=== PATIENT | female | born 1945 | race African-American/Black ===

== ENCOUNTER 2020-06-28 12:57 | Outpatient (REF) | payer MEDICARE, SELFPAY ==
[2020-06-28 14:54] LABS: MANUAL DIFF FLAG NO
[2020-06-28 14:58] LABS: Basophils Absolute Auto 0.1 X10*3/uL (0.0-0.2); Basophils Percent Auto 1.2 % (0-2); Eosinophils Absolute Auto 0.1 X10*3/uL (0.0-0.4); Eosinophils Percent Auto 2.7 % (0-4); Hematocrit 37.2 % (37-47); Hemoglobin 12.3 g/dl (12.0-16.0); Imm Gran Abs Auto 0.01 X10*3/uL (0.00-0.03); Imm Gran Pct Auto 0.2 % (0.0-0.4); Lymphocytes Absolute Auto 1.1 X10*3/uL (1.2-4.9); Lymphocytes Percent Auto 22.7 % (20-40); Mean Corpuscular HGB Conc 33.1 g/dl (31.0-35.0); Mean Corpuscular Hemoglobin 30.4 pg (27.0-33.0); Mean Corpuscular Volume 91.9 fL (80-98); Mean Platelet Volume 11.2 fL (9.4-12.3); Monocytes Absolute Auto 0.5 X10*3/uL (0.1-1.2); Monocytes Percent Auto 10.2 % (2-11); Neutrophils Absolute Auto 3.1 X10*3/uL (2.0-8.3); Platelet Count 204 X10*3/uL (160-400); Red Blood Count 4.05 X10*6/uL (4.20-5.50); Red Cell Distribution Width 14.8 % (11.0-16.0); White Blood Count 4.9 X10*3/uL (4.8-10.8)
[2020-06-28 15:27] LABS: Albumin Level 3.9 g/dL (3.5-5.0); Anion Gap 11 (12-20); Blood Urea Nitrogen 9 mg/dL (9-16); Calcium 8.9 mg/dL (8.4-10.2); Carbon Dioxide 28 mmol/L (22-29); Chloride 105 mmol/L (96-108); Estimated Glomerular Filt Rate 45; Magnesium 1.8 mg/dL (1.6-2.6); Phosphorus 2.7 mg/dL (2.7-4.5); Potassium 4.3 mmol/l (3.3-5.1); Sodium 140 mmol/L (135-145)
[2020-06-30 15:07] LABS: Calcium (PTHI) 9.2 mg/dL (8.6-10.4); PTHI 100 pg/mL (14-64)
== END 2020-06-28 12:58 | disposition home or self-care (01) ==
LOC: HO.LAB 12:57
PROVIDERS: PCP Internal Medicine; Visit Provider Internal Medicine Hypertension Specialist
DX: I13.0 Hypertensive heart and chronic kidney disease with heart failure and stage 1 through stage 4 chronic kidney disease, or unspecified chronic kidney disease (principal); N18.30 Chronic kidney disease, stage 3 unspecified; I50.9 Heart failure, unspecified
CPT/HCPCS: 36415; 80051; 82040; 82310; 82565; 83735; 83970; 84100; 84520; 85025

== ENCOUNTER 2020-07-07 10:15 | Outpatient (REF) | payer MEDICARE, SELFPAY ==
[2020-07-07 11:51] LABS: Vitamin D 25-OH Total 23.9 ng/mL (>30)
== END 2020-07-07 10:16 | disposition home or self-care (01) ==
LOC: HO.LAB 10:15
PROVIDERS: PCP Internal Medicine; Visit Provider Internal Medicine
DX: E55.9 Vitamin D deficiency, unspecified (principal)
CPT/HCPCS: 82306

== ENCOUNTER 2020-07-24 09:43 | Outpatient (REF) | payer MEDICARE, SELFPAY ==
[2020-07-24 12:59] LABS: Alanine Aminotransferase 8 U/L (0-31); Alkaline Phosphatase 54 U/L (39-117); Anion Gap 12 (12-20); Aspartate Amino Transferase 19 U/L (5-31); Bilirubin Total 1.2 mg/dL (0.0-1.0); Blood Urea Nitrogen 12 mg/dL (9-16); Carbon Dioxide 31 mmol/L (22-29); Chloride 102 mmol/L (96-108); Cholesterol 179 mg/dL; Estimated Glomerular Filt Rate 40; Glucose Fasting 98 mg/dL (60-99); HDL Cholesterol 52 mg/dL; LDL Cholesterol Calculated 102 mg/dl; Potassium 4.6 mmol/l (3.3-5.1); Sodium 140 mmol/L (135-145); Total Protein 7.2 g/dL (6.5-8.0); Triglycerides 126 mg/dL
[2020-07-28 14:21] LABS: Vitamin D 25-OH, D2 <4 ng/mL; Vitamin D 25-OH, D3 24 ng/mL; Vitamin D 25-OH, Total 24 ng/mL (30-100)
== END 2020-07-24 09:44 | disposition home or self-care (01) ==
LOC: HO.LAB 09:43
PROVIDERS: PCP Internal Medicine; Visit Provider Internal Medicine
DX: E55.9 Vitamin D deficiency, unspecified (principal); E11.9 Type 2 diabetes mellitus without complications
CPT/HCPCS: 80053; 80061; 82306

== ENCOUNTER 2020-08-20 12:58 | Outpatient (REF) | payer MEDICARE, SELFPAY ==
--- NOTE | 2020-08-20 13:07 | XR_ITS ---
EXAMINATION: XR CHEST CLINICAL INFORMATION: Cough. COMPARISON: None TECHNIQUE: 2 views of the chest were obtained. FINDINGS: The lungs are well-expanded patchy atelectasis or scarring right lung base. Rest of lungs are clear. Heart size and pulmonary vascularity is normal. No gross bony abnormality. XR/XR chest 2V IMPRESSION: Patchy atelectasis or infiltrate in right lung base.
== END 2020-08-20 12:59 | disposition home or self-care (01) ==
LOC: HO.HMGCX 12:58
PROVIDERS: PCP Internal Medicine; Visit Provider Nurse Practitioner Family
DX: R05 Cough (principal)
CPT/HCPCS: 71046

== ENCOUNTER 2020-08-21 12:09 | Outpatient (REF) | payer MEDICARE, SELFPAY | END 2020-08-21 12:10 | disposition home or self-care (01) | LOC: HO.HMGCLDS 12:09 | PROVIDERS: Visit Provider Internal Medicine | DX: Z20.828 Contact with and (suspected) exposure to other viral communicable diseases (principal) | CPT/HCPCS: C9803; U0003 ==

== ENCOUNTER 2020-10-30 11:19 | Outpatient (REF) | payer MEDICARE, SELFPAY ==
[2020-10-30 13:49] LABS: Alanine Aminotransferase 9 U/L (0-31); Albumin Level 4.3 g/dL (3.5-5.0); Alkaline Phosphatase 70 U/L (39-117); Anion Gap 14 (12-20); Aspartate Amino Transferase 20 U/L (5-31); Blood Urea Nitrogen 9 mg/dL (9-16); Calcium 9.1 mg/dL (8.4-10.2); Carbon Dioxide 28 mmol/L (22-29); Chloride 105 mmol/L (96-108); Estimated Glomerular Filt Rate 39; Glucose Random 97 mg/dL (60-115); Potassium 4.1 mmol/L (3.3-5.1); Sodium 143 mmol/L (135-145); Total Protein 7.7 g/dL (6.5-8.0)
[2020-11-03 13:27] LABS: Vitamin D 25-OH, D2 4 ng/mL; Vitamin D 25-OH, D3 19 ng/mL; Vitamin D 25-OH, Total 23 ng/mL (30-100)
== END 2020-10-30 11:20 | disposition home or self-care (01) ==
LOC: HO.LAB 11:19
PROVIDERS: PCP Internal Medicine; Visit Provider Student in an Organized Health Care Education/Training Program
DX: M81.0 Age-related osteoporosis without current pathological fracture (principal); Z79.899 Other long term (current) drug therapy
CPT/HCPCS: 36415; 80053; 82306; 99212

== ENCOUNTER 2020-11-20 12:12 | Outpatient (REF) | payer MEDICARE, SELFPAY ==
[2020-11-20 13:07] LABS: MANUAL DIFF FLAG NO
[2020-11-20 13:20] LABS: Basophils Percent Auto 0.7 % (0-2); Eosinophils Absolute Auto 0.1 X10*3/uL (0.0-0.4); Eosinophils Percent Auto 2.2 % (0-4); Hematocrit 38.9 % (37-47); Hemoglobin 12.9 g/dl (12.0-16.0); Imm Gran Abs Auto 0.02 X10*3/uL (0.00-0.03); Imm Gran Pct Auto 0.4 % (0.0-0.4); Lymphocytes Absolute Auto 1.1 X10*3/uL (1.2-4.9); Lymphocytes Percent Auto 20.3 % (20-40); Mean Corpuscular HGB Conc 33.2 g/dl (31.0-35.0); Mean Corpuscular Hemoglobin 30.1 pg (27.0-33.0); Mean Corpuscular Volume 90.9 fL (80-98); Mean Platelet Volume 11.1 fL (9.4-12.3); Monocytes Absolute Auto 0.5 X10*3/uL (0.1-1.2); Monocytes Percent Auto 9.8 % (2-11); Neutrophils Absolute Auto 3.7 X10*3/uL (2.0-8.3); Neutrophils Percent Auto 66.6 % (45-73); Platelet Count 208 X10*3/uL (160-400); Red Blood Count 4.28 X10*6/uL (4.20-5.50); Red Cell Distribution Width 15.4 % (11.0-16.0); White Blood Count 5.5 X10*3/uL (4.8-10.8)
[2020-11-20 13:59] LABS: Creatinine Urine 203.25 mg/dL
[2020-11-20 14:14] LABS: Estimated Average Glucose 114 mg/dL; Hemoglobin A1c % 5.6 %
[2020-11-20 14:58] LABS: Alanine Aminotransferase 7 U/L (0-31); Albumin Level 4.1 g/dL (3.5-5.0); Alkaline Phosphatase 67 U/L (39-117); Anion Gap 11 (12-20); Aspartate Amino Transferase 20 U/L (5-31); Bilirubin Total 0.8 mg/dL (0.0-1.0); Blood Urea Nitrogen 9 mg/dL (9-16); Calcium 9.6 mg/dL (8.4-10.2); Carbon Dioxide 29 mmol/L (22-29); Chloride 109 mmol/L (96-108); Cholesterol 170 mg/dL; Estimated Glomerular Filt Rate 40; Glucose Fasting 109 mg/dL (60-99); HDL Cholesterol 48 mg/dL; LDL Cholesterol Calculated 105 mg/dl; Potassium 4.2 mmol/L (3.3-5.1); Sodium 145 mmol/L (135-145); Total Protein 7.4 g/dL (6.5-8.0); Triglycerides 88 mg/dL
[2020-11-25 11:21] LABS: Vitamin D 25-OH, D2 4 ng/mL; Vitamin D 25-OH, D3 17 ng/mL; Vitamin D 25-OH, Total 21 ng/mL (30-100)
== END 2020-11-20 12:13 | disposition home or self-care (01) ==
LOC: HO.LAB 12:12
PROVIDERS: Absent Provider Internal Medicine; PCP Internal Medicine; Visit Provider Dermatology
DX: E55.9 Vitamin D deficiency, unspecified (principal); E78.5 Hyperlipidemia, unspecified; L12.0 Bullous pemphigoid; E11.9 Type 2 diabetes mellitus without complications; Z79.899 Other long term (current) drug therapy
CPT/HCPCS: 36415; 80053; 80061; 82043; 82306; 83036; 85025

== ENCOUNTER 2022-06-11 12:33 | Outpatient (REF) | payer MEDICARE, MEDICAID, SELFPAY ==
--- NOTE | ~2022-06-11 | US_ITS ---
EXAMINATION: US SCREENING ULTRASOUND BREAST, BILATERAL CLINICAL INFORMATION: Stretcher bound. Ultrasound screening in lieu of mammography. COMPARISON: Bilateral mammography 09/23/2016 TECHNIQUE: Ultrasound is performed using grayscale imaging and color Doppler. Imaging is performed to include the four quadrants and retroareolar region. Both breasts are imaged. FINDINGS: Right breast: There is no suspicious finding by ultrasound. There is no cystic or solid mass or focal architectural abnormality. Left breast: There is no suspicious finding by ultrasound. There is no solid mass or focal architectural abnormality. There are 3 superficial oval cysts just beneath the skin mid outer left breast, largest measuring 1.3 x 0.8 cm with fine avascular internal septation. The cysts are circumscribed, anechoic, and show no peripheral or internal color flow. There is mild increased through-transmission at real-time imaging. Results are discussed with the patient and family at time of appointment. If patient is able to return in wheelchair, routine mammography may be performed. US/US breast LT complete IMPRESSION: -Unremarkable bilateral breast ultrasound. -No solid mass or architectural abnormality. ASSESSMENT: BI-RADS 2: Benign RECOMMENDATION: Annual breast screening as able. This patient's information was entered into a reminder system with a target due date for their next breast imaging.
--- NOTE | ~2022-06-11 | US_ITS ---
EXAMINATION: US SCREENING ULTRASOUND BREAST, BILATERAL CLINICAL INFORMATION: Stretcher bound. Ultrasound screening in lieu of mammography. COMPARISON: Bilateral mammography 09/23/2016 TECHNIQUE: Ultrasound is performed using grayscale imaging and color Doppler. Imaging is performed to include the four quadrants and retroareolar region. Both breasts are imaged. FINDINGS: Right breast: There is no suspicious finding by ultrasound. There is no cystic or solid mass or focal architectural abnormality. Left breast: There is no suspicious finding by ultrasound. There is no solid mass or focal architectural abnormality. There are 3 superficial oval cysts just beneath the skin mid outer left breast, largest measuring 1.3 x 0.8 cm with fine avascular internal septation. The cysts are circumscribed, anechoic, and show no peripheral or internal color flow. There is mild increased through-transmission at real-time imaging. Results are discussed with the patient and family at time of appointment. If patient is able to return in wheelchair, routine mammography may be performed. US/US breast RT complete IMPRESSION: -Unremarkable bilateral breast ultrasound. -No solid mass or architectural abnormality. ASSESSMENT: BI-RADS 2: Benign RECOMMENDATION: Annual breast screening as able. This patient's information was entered into a reminder system with a target due date for their next breast imaging.
== END 2022-06-11 12:34 | disposition home or self-care (01) ==
LOC: HO.MAMMO 12:33
PROVIDERS: PCP Internal Medicine; Visit Provider Internal Medicine
DX: N63.0 Unspecified lump in unspecified breast (principal); Z74.01 Bed confinement status
CPT/HCPCS: 76641

== ENCOUNTER 2023-09-15 08:28 | Outpatient (AMB) | payer MEDICARE, MEDICAID, SELFPAY ==
[2023-09-15 08:35] VITALS: BP 142/68; PULSE 121; O2SAT 96
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
[2023-09-15 09:26] VITALS: BP 145/70
== END 2023-09-15 09:09 | disposition home or self-care (01) ==
PROVIDERS: PCP Internal Medicine; Visit Provider Internal Medicine
DX: E11.9 Type 2 diabetes mellitus without complications (principal); L98.429 Non-pressure chronic ulcer of back with unspecified severity; I10 Essential (primary) hypertension; Z23 Encounter for immunization; E78.00 Pure hypercholesterolemia, unspecified
CPT/HCPCS: 83036; 90471; 90686; 99214

== ENCOUNTER 2024-10-12 14:28 | Outpatient (AMB) | payer MEDICARE, MEDICAID, SELFPAY ==
--- NOTE | 2024-10-12 14:35 | MHC.PC.OV ---
Vital Signs 10/12/24 14:38 Height 5 ft 5 in BMI Reason not done Patient refused/unable BP 162/90 H Blood Pressure Location Lt brachial Position Sitting Pulse 117 H Pulse Source Pulse Oximeter Temp 97.3 F Temp Source Temporal Artery Scan Pulse Oximetry (%) 93 Oxygen Delivery Method Room Air Intake Visit Reasons: FollowUp Senior Director Finance Required: No Accompanied by: Self / Same As Patient Allergies Penicillins [PENICILLINS] Allergy (Intermediate, Verified 10/12/24 14:51) SWELLING Medication List - Last Reconciled 10/12/24 by Esther Garcia MD [adult diapers briefs As directed] atorvastatin 80 mg PO DAILY azathioprine 50 mg PO DAILY 90 days blood sugar diagnostic (FreeStyle Lite Strips) Use 1 test strip once a day blood-glucose meter (FreeStyle Lite Meter kit) As directed cholecalciferol (vitamin D3) 50 mcg PO DAILY cream base no.228 (bulk) (Atrevis Hydrogel cream) 1 appl miscellaneous DAILY PRN 90 days [diabetic shoes As directed] diaper,brief,adult,disposable (Briefs, Adult-Extra Large) As directed, Size 3x doxycycline hyclate 100 mg PO BID 5 days [maxim lift As directed] hydrocortisone 1% (Anti-Itch (hydrocortisone)) 1 appl topical BID PRN 2 weeks lancets (FreeStyle Lancets) Use 1 lancet once a day lisinopril 5 mg PO DAILY 90 days metformin 1,000 mg PO BID 90 days miscellaneous medical supply 1 ea miscellaneous Q2H PRN naproxen 250 mg PO DAILY PRN 90 days [off-set hinges As directed] oxybutynin chloride ER 15 mg PO DAILY 90 days [pedestal sink As directed] [wheelchair As directed] white petrolatum 41% (Aquaphor Healing) 1 appl topical DAILY PRN 30 days Tobacco use date assessed: 10/12/24 Fall risk assessment: No Falls in past year Last assessed Fall Risk: 10/12/24 Dental Screening Dental Screen Date: 10/12/24 Did you have a dental visit in the last 12 months?: Yes Did you have a dental problem in the last 6 months where you did not have access to dental care?: No Was dental information given to patient?: Patient has dentist HPI HPI Comments History of Present Illness Details The patient is an 79-year-old female presenting with hypertension and a persistent cough. The patient has been experiencing elevated blood pressure, which was noted as a present concern during the consultation. She did not take her current blood pressure medication, lisinopril, on the day of the visit, which she was prescribed at 5 mg, and planned to increase it to 10 mg to better manage her blood pressure. In addition, the patient reports a cough that began approximately one week prior to the visit. The cough is described as producing clear sputum and happens mainly at night, without any accompanying symptoms such as a runny nose or hemoptysis. She states that she completed a recent antibiotic treatment for a cold, which was effective as per her reporting. In terms of chronic conditions, the patient is being treated for bullous pemphigoid with azathioprine 50 mg, under the care of a librarian school. She also has hyperlipidemia, for which she is prescribed atorvastatin 80 mg, and a follow-up blood work is planned. The patient has a significant allergy to penicillin, which causes swelling. There is also a significant family history of dementia and longevity, as her mother suffered from dementia and recently at the age of 99. [facility] Medical History (Updated 10/12/24 @ 19:25 by Esther Garcia MD) Stage 1 skin ulcer of sacral region Abnormal x-ray Osteoporosis Urge urinary incontinence Hypovitaminosis D Bullous pemphigoid Pure hypercholesterolemia Knee osteoarthritis Lumbar degenerative disc disease Diabetes mellitus Surgical History S/P ORIF (open reduction internal fixation) fracture Status post trigger finger release History of removal of cyst History of bunionectomy Family History Father Diabetes Mother Diabetes Dementia Sister No problems noted. Maternal Grandmother Diabetes Maternal Grandfather Diabetes Paternal Grandmother Stroke Maternal Uncle Stroke CVD (cardiovascular disease) Cancer Social History Housing: House Alcohol intake: never Patient Tobacco Use Status: Never used Tobacco e-Cigarette/Vaping Use: Never Used Second Hand Smoke Exposure: No service: No Current occupational status: retired and disabled Cognitive needs: Yes Hearing needs: No Vision needs: No Questionnaire PHQ-9 Over the last 2 weeks, how often have you been bothered by any of the following problems? 1. Little interest or pleasure in doing things: not at all 2. Feeling down, depressed, or hopeless: not at all 3. Trouble falling or staying asleep, or sleeping too much: not at all 4. Feeling tired or having little energy: not at all 5. Poor appetite or overeating: not at all 6. Feeling bad about yourself - or that you are a failure or have let yourself or your family down: not at all 7. Trouble concentrating on things, such as reading the newspaper or watching television: not at all 8. Moving or speaking so slowly that other people could have noticed. Or the opposite - being so fidgety or restless that you have been moving around a lot more than usual: not at all 9. Thoughts that you would be better off or of hurting yourself in some way: not at all Total score: 0 Depression Screening Interpretation: Negative Depression Screening Done: Yes 81852 - PHQ-9 Billing: Yes Source: Developed by Drs. Bryon Partida, Puja Hickey, Nikolay Gunn and colleagues, with an educational bucky from [employer]. Thrive Questionnaire Date Thrive assessed: 10/12/24 I am a: Patient What is your living situation today?: I have a steady place to live Within the past 12 months, did the food you bought not last and you didn't have the money to get more?: Never true Within the past 12 months, did you worry whether your food would run out before you got money to buy more?: Never true Do you have trouble paying for medicines?: No Do you have trouble getting transportation to medical appointments?: No Do you have trouble paying your heating and electricity bill?: No Do you have trouble taking care of your child, family member or friend?: No Do you have trouble with day-to-day activities such as bathing, preparing meals, shopping, managing finances, etc.?: No Are you currently unemployed and looking for a job?: No Are you interested in more education?: No Please select the resources that you would like help with: None Currently or been in a relationship where the following occur: No concerns reported THRIVE Score: 0 AUDIT C Alcohol Use Questionnaire (AUDIT-C) 1. How often do you have a drink containing alcohol?: Never 3. How often do you have six or more drinks on one occasion?: Never Total Score: 0 Score Reviewed/Action Taken: No NASIR-7 AMB Questionnaire NASIR-7 Date NASIR - 7 assessed: 10/12/24 Feeling nervous, anxious, or on edge: 0 = Not at all Not being able to stop or control worryin = Not at all Worrying too much about different things: 0 = Not at all Trouble relaxin = Not at all Being so restless that it is hard to sit still: 0 = Not at all Becoming easily annoyed or irritable: 0 = Not at all Feeling afraid as if something awful might happen: 0 = Not at all Total NASIR-7 score (0-4 normal; 5-9 mild; 10-14 moderate; 15-21 severe): 0 Source: Developed by Drs. Bryon Partida, Puja Hickey, Nikolay Gunn and colleagues, with an educational bucky from [employer]. NASIR-7 Assessment Billing NASIR-7 Assessment Tool: NASIR-7 Assessment 39447 Review of Systems Const All systems reviewed & are unremarkable except as noted in HPI and below Card Denies chest pain at rest, Denies chest pain with activity, Denies edema, Denies irregular heart rhythm, Denies claudication, Denies orthopnea, Denies paroxysmal nocturnal dyspnea and Denies slow heart rate Physical exam (Primary Care) Vital Signs: Last Vital Signs Temp 97.3 F 10/12/24 14:38 Pulse 117 H 10/12/24 14:38 BP 162/90 H 10/12/24 14:38 Pulse Ox 93 10/12/24 14:38 Oxygen Delivery Method Room Air 10/12/24 14:38 Tobacco/Smoking Status: Tobacco use Status Tobacco use date assessed 10/12/24 10/12/24 14:42 Patient Tobacco Use Status Never used Tobacco 10/12/24 14:36 e-Cigarette/Vaping Use Never Used 10/12/24 14:36 PHQ-9: PHQ-9 Score PHQ-9: Total score 0 10/12/24 15:11 Depression Screening Interpretation: Negative Thrive Assessment: Date of Thrive Assessment Date Thrive assessed 10/12/24 10/12/24 14:42 Currently or been in a relationship where the following occur: No concerns reported Const Limitations: wheelchair Resp Effort & Inspection: normal respiratory effort Auscultation: clear to auscultation bilaterally Cardio Jugular venous distension: no JVD Rate: regular rate Rhythm: regular rhythm Heart sounds: S1 normal heart sound present and S2 normal heart sound present Extrem Other: Very limited range of motion in right leg, not able to fully flex or extend the knee and not able to stand Office Procedures Flu Questionnaire Does the patient have a severe egg allergy?: No Does the patient have severe life threatening allergies?: No Does the patient have a fever or illness today?: No Has the patient ever had Guillain-[place] Syndrome?: No Has the patient ever had any past reaction to a flu shot?: No Results AMB Hemoglobin A1c AMB Hemoglobin A1c 6.1 % Last Edit by ANDRES Jacobsen on 10/12/24 15:11 Immunizations Fluarix Triv 4526-2938 (PF) 45 mcg (15 mcg x 3)/0.5 mL IM syringe Performing Provider: Esther Garcia MD [facility] Administered by: ANDRES Jacobsen on 10/12/24 15:11 Dose Route Admin Location Dispensed Lot Number Expiration Date [facility][NOTE 3] Independent Marketing Consultant 0.5 mL IM Left Deltoid 0.5 mL [id number] 03/13/25 [id number] [employer] VIS Given Date VIS Provided VIS Publication Date 10/12/24 Single Vaccine 21 Eligibility Eligibility Date Funding Source Not [facility] Eligible 10/12/24 Private Results Reviewed Results Reviewed: Laboratory Last Values Hgb A1c (Clinic) 6.1 % (4.0-6.0) H 10/12/24 14:56 Coding Level of Care Code Est Pt Level 4 (23530) Complex EM visit Add On G2211 Diagnoses Type 2 diabetes mellitus without complication, unspecified whether terminal block assembler insulin use E11.9 Diabetes mellitus type: type 2 Diabetes mellitus longterm insulin use: unspecified terminal block assembler insulin use status Diabetes mellitus complication status: without complication Pure hypercholesterolemia E78.00 Bullous pemphigoid L12.0 Essential hypertension I10 Additional Codes NASIR-7 Assessment Billing - NASIR-7 Assessment Tool: NASIR-7 Assessment 05398 ([id number]) PHQ-9 - 71717 - PHQ-9 Billing: Yes ([id number]) Time Spent (min) 23 Assessment & Plan Assessment & Plan (1) Diabetes mellitus: Code(s): E11.9 - Type 2 diabetes mellitus without complications Category: Medical Qualifiers: Diabetes mellitus type: type 2 Diabetes mellitus longterm insulin use: unspecified terminal block assembler insulin use status Diabetes mellitus complication status: without complication Qualified Code(s): E11.9 - Type 2 diabetes mellitus without complications (2) Pure hypercholesterolemia: Code(s): E78.00 - Pure hypercholesterolemia, unspecified Category: Medical (3) Bullous pemphigoid: Code(s): L12.0 - Bullous pemphigoid Category: Medical (4) Essential hypertension: Code(s): I10 - Essential (primary) hypertension Category: Medical Plan - Blood work to monitor lipid profile and medication efficacy for hyperlipidemia. - Increase lisinopril dosage to 10 mg for better blood pressure control. - Evaluate the need for cough management if symptoms persist or worsen. - Refill prescription for protective barrier cream for skin maintenance. - Provide a new mattress to improve comfort and prevent skin complications related to prolonged sitting. Patient was informed and verbally consented to the use of an ambient scribe for clinic note documentation during this visit. During the visit, I discussed with the patient the importance of controlling her blood pressure and the plan to increase her lisinopril from 5 mg to 10 mg. We reviewed her allergy to penicillin and discussed the management of her hyperlipidemia with atorvastatin, highlighting the need for regular monitoring through blood work. In regards to her persistent cough, reassurance was provided, noting the absence of concerning symptoms like hemoptysis but advising follow-up if it persists. We talked about obtaining a mattress to improve her hospital bed comfort, emphasizing skin care preventative measures. The patient was also advised to use protective barrier creams to aid skin integrity due to prolonged sitting. Orders: Orders AMB Hemoglobin A1c Today E11.9 - Type 2 diabetes mellitus without complications Lipid Panel Today E78.5 - Hyperlipidemia, unspecified Microalbumin, Random (w Creat) Today R80.9 - Proteinuria, unspecified Comprehensive [place]. 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 - Complete follow-up blood work as scheduled for cholesterol management. - Monitor blood pressure regularly at home and report any significant changes. - Use protective barrier creams regularly as prescribed to maintain skin integrity. - If the cough persists or worsens, contact the office for reassessment. - Arrange for replacement of the hospital bed mattress to prevent further skin issues.
[2024-10-12 14:38] VITALS: BP 162/90; PULSE 117; TEMP 36.3; O2SAT 93
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
== END 2024-10-12 15:14 | disposition home or self-care (01) ==
PROVIDERS: PCP Internal Medicine; Visit Provider Internal Medicine
DX: E11.9 Type 2 diabetes mellitus without complications (principal); E78.00 Pure hypercholesterolemia, unspecified; L12.0 Bullous pemphigoid; I10 Essential (primary) hypertension; Z23 Encounter for immunization

== ENCOUNTER → 2024-10-12 14:28 | Outpatient (BNVA) | payer MEDICARE, MEDICAID, SELFPAY | PROVIDERS: PCP Internal Medicine; Visit Provider Internal Medicine | DX: I10 Essential (primary) hypertension (principal); R05.8 Other specified cough; E11.9 Type 2 diabetes mellitus without complications; E78.00 Pure hypercholesterolemia, unspecified; L12.0 Bullous pemphigoid; E78.5 Hyperlipidemia, unspecified; R80.9 Proteinuria, unspecified; L98.429 Non-pressure chronic ulcer of back with unspecified severity; N39.46 Mixed incontinence; Z23 Encounter for immunization; Z74.01 Bed confinement status | CPT/HCPCS: 83036; 90471; 90656; 96127; 99212 ==

== ENCOUNTER → 2024-12-01 13:42 | Outpatient (BNVA) | payer MEDICARE, MEDICAID, SELFPAY | PROVIDERS: PCP Internal Medicine ==

== ENCOUNTER 2025-06-04 12:55 | Emergency (ER) | payer MEDICARE, SELFPAY ==
--- NOTE | ~2025-06-04 | US_ITS ---
CLINICAL HISTORY: Abnormal Uterine Bleed US female pelvis LMP:Postmenopausal presenting with bleeding. Technique: Ultrasound examination of the pelvis was performed with transabdominal and transvaginal technique for better visualization of the endometrium and ovaries. Comparison: None available Findings: Anteverted uterus measuring 7.0 x 2.5 x 4.1cm with a fibroid of the lower uterine segment posteriorly measuring 5.9 x 6.6 x 5.0 cm. Thickened endometrium, measuring0.6cm. The ovaries were not visualized. No lesions in the adnexa. No free fluid. Impression: Mildly thickened endometrium for postmenopausal patient presenting with bleeding. Follow up with gynecology. Fibroid uterus. This document has been electronically signed by: Elizabet Rosario MD on 06/04/2025 14:54:47
[2025-06-04 13:08] VITALS: BP 130/68; BP 138/74; PULSE 76; PULSE 88; RESP 18; TEMP 36.8; O2SAT 100; O2SAT 99; BMI 35.8
--- NOTE | 2025-06-04 13:38 | ED_ITS ---
HPI - General Adult General Chief complaint: Vaginal Bleeding Stated complaint: VAGINAL BLEEDING SINCE LAST NIGHT Time Seen by Provider: 06/04/25 13:10 Source: patient Mode of arrival: ambulatory Limitations: no limitations History of Present Illness ED Provider: Dr. Preston HPI narrative: 80-year-old female history of urine incontinence, hyperlipidemia, diabetes, hypertension, wheelchair-bound presented hospital today for evaluation of vaginal bleeding. Patient stated that this has been going on for couple of weeks now. Patient denies any rectal bleeding however she states she is noticing some blood coming in her vagina like she is having a period. She denies any pelvic pain denies any flank pain denies any dysuria. Denies any abnormal discharge coming out of the vagina. Discussed the case with the patient's niece we stated that patient has been having some Fleet enema for her bowel movement. Noticed that the bowel movement has been having some blood in there. They were unsure whether this from her rectum or vagina Related Data Previous Rx's ?Medication ?Instructions ?Recorded diabetic shoes #1 ea 10/18/20 blood sugar diagnostic (FreeStyle #100 ea 09/21/21 Lite Strips) blood-glucose meter (FreeStyle #1 ea 09/21/21 Lite Meter kit) lancets 28 gauge (FreeStyle #100 ea 09/21/21 Lancets) miscellaneous medical supply 1 ea miscellaneous Q2H OR N Blue 12/01/21 Chucks Disposable #100 ea maxim lift #1 ea 09/03/22 off-set hinges #1 ea 02/24/23 pedestal sink #1 ea 02/24/23 wheelchair #1 ea 04/14/23 doxycycline hyclate 100 mg tablet 100 mg PO BID 5 days #10 tabs 08/11/23 cholecalciferol (vitamin D3) 50 50 mcg PO DAILY #90 ca ps 09/15/23 mcg (2,000 unit) capsule diaper,brief,adult,disposable #240 ea 11/10/23 (Briefs, Adult-Extra Large) metformin 1,000 mg tablet 1,000 mg PO BID 90 days #180 tabs 05/09/24 adult diapers briefs #120 ea 10/12/24 cream base no.228 (bulk) (Atrevis 1 appl miscellaneous DAILY PRN 10/12/24 Hydrogel cream) wound care 90 days #1 g azathioprine 50 mg tablet 50 mg PO DAILY 90 days #90 t abs 10/25/24 hydrocortisone 1 % topical cream 1 appl topical BID OR N skin 11/15/24 (Anti-Itch (hydrocortisone)) irritation 2 weeks #28.4 grams white petrolatum 41 % topical 1 appl topical DAILY PRN dry skin 12/04/24 ointment (Aquaphor Healing) 30 days #20 grams oxybutynin chloride 15 mg 15 mg PO DAILY 90 days #90 t abs 12/28/24 tablet,extended release 24 hr bed mattress #1 ea 03/20/25 naproxen 250 mg tablet 250 mg PO DAILY PRN pain 90 days 03/30/25 #90 tabs lisinopril 10 mg tablet 10 mg PO DAILY 90 days #90 t abs 04/17/25 atorvastatin 80 mg tablet 80 mg PO DAILY #90 tabs 04/15 03/08 tranexamic acid 650 mg tablet 650 mg PO Q8H 7 days #21 tabs 06/04/25 Allergies Allergy/AdvReac Type Severity Reaction Status Date / Time Penicillins (PENICILLINS) Allergy Intermediate SWELLING Verified 06/04/25 13:09 Review of Systems 2 Review of Systems: Pertinent review of systems as mentioned in HPI. All other system otherwise negative. FORMERLY [facility] Past Medical History FOR[facility] Narrative: Medical history as mentioned in [facility] Medical History (Updated 06/04/25 @ 17:32 by Summer Preston DO) Stage 1 skin ulcer of sacral region Abnormal x-ray Osteoporosis Urge urinary incontinence Hypovitaminosis D Bullous pemphigoid Pure hypercholesterolemia Knee osteoarthritis Lumbar degenerative disc disease Diabetes mellitus Surgical History S/P ORIF (open reduction internal fixation) fracture Status post trigger finger release History of removal of cyst History of bunionectomy Family History Family History Father Diabetes Mother Diabetes Dementia Sister No problems noted. Maternal Grandmother Diabetes Maternal Grandfather Diabetes Paternal Grandmother Stroke Maternal Uncle Stroke CVD (cardiovascular disease) Cancer Social History Social History Housing: House Alcohol intake: never Patient Tobacco Use Status: Never used Tobacco Smoked in Last 30 Days: No e-Cigarette/Vaping Use: Never Used Second Hand Smoke Exposure: No Use of substances other than those prescribed or required for medical reasons: No Advance Directives: No Advance Directives Information Provided: Yes Do you have a plan to hurt others: No Plan service: No Current occupational status: retired and disabled Cognitive needs: Yes Hearing needs: No Vision needs: No Physical Exam ED Exam Exam: General: Pleasant, no distress, interacting appropriately Head: Normacephalic, atraumatic ENT: oral mucosa moist, neck supple, no tracheal deviation Cardiovascular: regular rate, regular rhythm, no murmurs, rubbing, gallops Respiratory: CTAB, no wheeze, rales, rhonchi Gastrointestinal: Soft, non distended, non tender, non guarding : No sign of Clifford gangrene, I did do a pelvic exam there is some blood in the vaginal vault area. There was no blood on her rectal exam. No dark stool. Fecal occult will be sent off. Neurological: Awake and alert, no facial droop noted Skin: Warm and dry Psychiatric: Appropriate mood and thoughts Vital Signs: Vital Signs - 24 hr 06/04/25 13:08 06/04/25 15:54 Temperature 98.3 F 98.8 F Pulse Rate 76 98 Respiratory Rate 18 18 Blood Pressure 138/74 136/76 Pulse Oximetry 99 98 Oxygen Delivery Method Room Air Room Air BMI result Body Mass Index 35.8 Medical Decision Making Medical Decision Making MDM Narrative: 80-year-old female presented hospital today for onset of vaginal bleeding. Based on my physical exam the patient does have vaginal bleeding. We will obtain a trans vaginal ultrasound to evaluate her uterus. We will plan to assess her hemoglobin available. We will type and screen patient as well. Occult fecal blood test will be sent off. There was no obvious signs of blood in on rectal exam on her stool. Ultrasound did show thickened endometrium. Patient OSB was negative for any blood. Patient does have leukocytosis. However patient does not have any abdominal pain or chest pain. There was no obvious source of her leukocytosis. I discussed with the patient's niece inpatient to have her blood reassess in a week. Patient does not appear to be toxic. She does not appear to be acutely ill. No signs of UTI on UA We will plan to discharge patient with close outpatient follow up with the OBGYN team. We will also plan to have her follow up with her primary care doctor as well. We will plan to start patient on a short course of TXA to help alleviate some of the vaginal bleeding. She has no signs of severe anemia requiring transfusion. Differential Diagnosis Differential Diagnoses: The differential diagnosis associated with the presentation includes Rectal bleeding, vaginal bleeding, anemia, UTI Lab Data MDM Lab Attestation statement: I reviewed the patient's lab results. 06/04/25 13:46 06/04/25 13:46 Labs: Lab Results 06/04/25 06/04/25 06/04/25 Range/Units 13:46 15:20 15:59 WBC 16.5 H (4.8-10.8) X10*3/uL RBC 4.63 (4.20-5.50) X10*6/uL Hgb 13.7 (12.0-16.0) g/dl Hct 42.0 (37.0-47.0) % MCV 90.7 (80.0-98.0) fL MCH 29.6 (27.0-33.0) pg MCHC 32.6 (31.0-35.0) g/dl RDW 16.9 H (11.0-16.0) % Plt Count 328 (160-400) X10*3/uL MPV 9.7 (9.4-12.3) fL Immature Gran % (Auto) 0.4 (0.0-0.4) % Neut % (Auto) 80.7 H (45-73) % Lymph % (Auto) 12.0 L (20-40) % [place] % (Auto) 5.3 (2-11) % Eos % (Auto) 1.1 (0-4) % Baso % (Auto) 0.5 (0-2) % Lymph # (Auto) 2.0 (1.2-4.9) X10*3/uL [place] # (Auto) 0.9 (0.1-1.2) X10*3/uL Eos # (Auto) 0.2 (0.0-0.4) X10*3/uL Baso # (Auto) 0.1 (0.0-0.2) X10*3/uL Abs Immat Gran (auto) 0.06 H (0.00-0.03) X10*3/uL Absolute Neuts (auto) 13.3 H (2.0-8.3) x10*3/uL Absolute Nucleated RBC 0.000 (0.0-0.012) X10*3/uL Nucleated RBC % (auto) 0.0 (0.0-0.2) /100WBC Sodium 140 (135-145) mmol/L Potassium 4.2 (3.3-5.1) mmol/L Chloride 103 (96-108) mmol/L Carbon Dioxide 26 (22-29) mmol/L Anion Gap 15 (12-20) BUN 23 H (9-16) mg/dL Creatinine 1.36 (0.5-1.4) mg/dL Estim Creat Clear Calc 36.8 Estimated GFR 37 Random Glucose 148 H (60-115) mg/dL Calcium 9.8 (8.4-10.2) mg/dL Urine Color Yellow Urine Appearance Clear Urine pH 6.0 (5.0-9.0) Ur Specific [place] 1.010 (1.005-1.025) Urine Protein Negative (Neg-Trace) mg/dL Urine Glucose (UA) Negative (Negative) mg/dL Urine Ketones Negative (Negative) mg/dL Urine Blood Small (1+) H (Negative) Urine Nitrite Negative (Negative) Ur Leukocyte Esterase Negative (Negative) Urine RBC 11-20 H (0-2) /HPF Urine WBC 0-5 (0-5) /HPF Ur Squamous Epith Cells 0-2 (0-2) /HPF Urine Bacteria None Seen (None Seen) Hyaline Casts 0-2 (0-2) /LPF Stool Occult Blood NEGATIVE (NEGATIVE) Blood Type A Positive Antibody Screen NEGATIVE Independent Interpretation I performed an independent interpretation of an: Ultrasound Radiology Impression Discussion of test interpretation with radiology: I have reviewed the radiologist's reading. Discharge Plan Discharge Clinical Impression: Abnormal vaginal bleeding, Endometrial hyperplasia Patient Disposition: Home, Self-Care Additional Instructions: Follow up with the [facility] clinic. Follow up with your PCP for blood redraw for your blood count in a week. If your condition change and you don't feel well return to the ED. Your endometrium of your uterus is thickened. Measuring up to 6 cm which is abnormal. The concerns for this is SECOND BAKER doctor will need to see if this can be endometrial cancer. Prescriptions: New tranexamic acid 650 mg tablet 650 mg PO Q8H 7 Days Qty: 21 0RF No Action (DME) diabetic shoes 9 See Rx Instructions .Route .MEDSUPPLY Qty: 1 0RF Rx Instructions: As directed (DME) blood-glucose meter [FreeStyle Lite Meter] Kit See Rx Instructions .Route Qty: 1 0RF Rx Instructions: As directed (DME) FreeStyle Lite Strips Strip See Rx Instructions .Route Qty: 100 3RF Rx Instructions: Use 1 test strip once a day (DME) lancets [FreeStyle Lancets] 28 gauge misc See Rx Instructions .Route Qty: 100 3RF Rx Instructions: Use 1 lancet once a day miscellaneous medical supply Misc 1 ea miscellaneous Q2H PRN (Reason: Blue Chucks Disposable) Qty: 100 2RF (DME) maxim lift See Rx Instructions .Route .MEDSUPPLY Qty: 1 0RF Rx Instructions: As directed (DME) wheelchair See Rx Instructions .Route .MEDSUPPLY Qty: 1 0RF Rx Instructions: As directed doxycycline hyclate 100 mg tablet 100 mg PO BID 5 Days Qty: 10 0RF cholecalciferol (vitamin D3) 50 mcg (2,000 unit) capsule 50 mcg PO DAILY Qty: 90 0RF (DME) Briefs, Adult-Extra Large Misc See Rx Instructions .Route Qty: 240 6RF Rx Instructions: As directed, Size 3x metformin 1,000 mg tablet 1,000 mg PO BID 90 Days Qty: 180 1RF azathioprine 50 mg tablet 50 mg PO DAILY 90 Days Qty: 90 1RF hydrocortisone [Anti-Itch (HC)] 1 % cream 1 appl topical BID PRN (Reason: skin irritation) 14 Days Qty: 28.4 1RF Aquaphor Healing 41 % ointment 1 appl topical DAILY PRN (Reason: dry skin) 30 Days Qty: 20 2RF oxybutynin chloride 15 mg tablet extended release 24hr 15 mg PO DAILY 90 Days Qty: 90 1RF (DME) bed mattress full See Rx Instructions .Route .MEDSUPPLY Qty: 1 0RF Rx Instructions: As directed naproxen 250 mg tablet 250 mg PO DAILY PRN (Reason: pain) 90 Days Qty: 90 0RF lisinopril 10 mg tablet 10 mg PO DAILY 90 Days Qty: 90 1RF atorvastatin 80 mg tablet 80 mg PO DAILY Qty: 90 1RF (DME) off-set hinges See Rx Instructions .Route .MEDSUPPLY Qty: 1 0RF Rx Instructions: As directed (DME) pedestal sink See Rx Instructions .Route .MEDSUPPLY Qty: 1 0RF Rx Instructions: As directed Atrevis Hydrogel Cream 1 appl miscellaneous DAILY PRN (Reason: wound care) 90 Days Qty: 1 1RF (DME) adult diapers briefs 3XL See Rx Instructions .Route .MEDSUPPLY Qty: 120 11RF Rx Instructions: As directed Referrals: Jg Pérez MD [Physician, [employer]ISH[employer]PRENTICE] Clinical Impression: Endometrial hyperplasia; Abnormal vaginal bleeding Print Language: Azeri
[2025-06-04 13:51] LABS: MANUAL DIFF FLAG NO
--- OUTSIDE RECORDS SUMMARY | 2025-06-04 13:57 | XMS_ITS | Encounter Summary ---
Author Organization [facility] Address [address] [place] [id number] Phone Care Team Providers Care Wheelchair Driver Name Role Phone Esther De Los Santos MD Primary Care Provid er Encounter Details Date Type Department Care Team (Late st Contact Info) Description 01/14/2021 Procedure Pass OR Admitting Dept - Virtual Department [address] [place] [address] Social History Tobacco Use Types Packs/Day Years Used Date Smoking Tobacco: Never Smokeless Tobacco: Never Alcohol Use Standard Drinks/Week Comments Never 0 (1 standard drink = 0.6 oz pur e alcohol) Comments No Sex and Gender Information Value Date Recorded Sex Assigned at Female 12/24/2020 3:04 PM EDT Legal Sex Female 10:10 PM EDT Gender Identity Female 12/24/2020 3:04 PM EDT Sexual Orientation Straight 01/14/2021 5: 39 PM EDT documented as of this encounter Functional Status * Calculated C-SSRS Risk Score (Lifetime/Recent) Answer Date of Assessment Author No Risk Indicated 01/14/2021 5:41 PM EDT Astrid Solomon RN * [place] Suicide Severity Rating Scale (Screener/Recent Self-Report) Question Answer Date of Assessment Author 1. Wish to be (Past 1 Month) No 021 5:41 PM EDT Astrid Solomon RN 2. Non-Specific Active Suici maite Thoughts (Past 1 Month) No 01/14/2021 5:41 PM EDT Juanito, Astrid A, RN 6. Suicidal Behavior (Lifetime) No 1 5:41 PM EDT Astrid Solomon RN documented as of this encounter Plan of Treatment Not on file documented as of this encounter Visit Diagnoses Not on filedocumented in this encounter Care Teams Wheelchair Driver Relationship Specialty Start Date End Date Esther De Los Santos MD [address] [place] [address] PCP - General Internal Medicine 12/24/20 documented as of this encounter Additional Source Comments The information contained in this document represents components of the legal health record. It is not the complete legal health record.[facility]
--- OUTSIDE RECORDS SUMMARY | 2025-06-04 13:57 | XMS_ITS | Encounter Summary ---
Author Organization [facility] Address [address] [address] Phone Care Team Providers Care Supervisor Fine Grading Name Role Phone Esther De Los Santos MD Primary Care Provid er Encounter Details Date Type Department Care Team (Late st Contact Info) Description 01/02/2021 Procedure Pass OR Admitting Dept - Virtual Department [address] [place] [id number] Social History Tobacco Use Types Packs/Day Years [...] PM EDT documented as of this encounter Plan of Treatment Not on file documented as of this encounter Visit Diagnoses Not on filedocumented in this encounter Care Teams Supervisor Fine Grading Relationship Specialty Start Date End Date Esther De Los Santos MD [address] [place] [address] PCP - General Internal Medicine 12/24/20 documented as of this encounter Additional Source Comments The information contained in this document represents components of the legal health record. It is not the complete legal health record.[facility]
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
[2025-06-04 14:05] LABS: Anion Gap 15 (12-20); Blood Urea Nitrogen 23 mg/dL (9-16); Calcium 9.8 mg/dL (8.4-10.2); Carbon Dioxide 26 mmol/L (22-29); Chloride 103 mmol/L (96-108); Creatinine Clr Calc Pharmacy 36.8; Estimated Glomerular Filt Rate 37; Potassium 4.2 mmol/L (3.3-5.1); Sodium 140 mmol/L (135-145)
[2025-06-04 14:07] LABS: Hematocrit 42.0 % (37.0-47.0); Hemoglobin 13.7 g/dl (12.0-16.0); Imm Gran Abs Auto 0.06 X10*3/uL (0.00-0.03); Imm Gran Pct Auto 0.4 % (0.0-0.4); Lymphocytes Absolute Auto 2.0 X10*3/uL (1.2-4.9); Mean Corpuscular HGB Conc 32.6 g/dl (31.0-35.0); Mean Corpuscular Hemoglobin 29.6 pg (27.0-33.0); Mean Corpuscular Volume 90.7 fL (80.0-98.0); NRBC Abs Auto 0.000 X10*3/uL (0.0-0.012); NRBC Pct Auto 0.0 /100WBC (0.0-0.2); Platelet Count 328 X10*3/uL (160-400); Red Blood Count 4.63 X10*6/uL (4.20-5.50); White Blood Count 16.5 X10*3/uL (4.8-10.8)
[2025-06-04 15:35] LABS: OBS Int Ctl Valid YES; OBS1 NEGATIVE (NEGATIVE)
[2025-06-04 15:54] VITALS: BP 136/76; PULSE 98; RESP 18; TEMP 37.1; O2SAT 98
--- NOTE | 2025-06-04 15:56 | PC.NURSE ---
this nurse took report from Afsaneh, took over patient care at 1530, patient currently a&ox3, vss, rr equal/non labored, pt denies pain/discomfort, pt is currently being straight cath'd for UA- urine presently draining- notable vaginal bleeding bright red blood while attempting straight cath. per report pelvic exam previously performed by provider, vaginal US performed as well. pt states she is wc at baseline but is learning to walk again with walker. fall precautions placed, call pastor within reach, plan of care ongoing
[2025-06-04 16:08] LABS: Appearance Urine Clear; Glucose Urine UA Negative (Negative); PH 6.0 (5.0-9.0); Specific Gravity - Urine 1.010 (1.005-1.025); UMIC TRIGGER UA YES
[2025-06-04 18:12] VITALS: BP 137/76; PULSE 95; RESP 18; TEMP 37.1; O2SAT 99
[2025-06-04 19:33] VITALS: BP 137/76; PULSE 95; RESP 18; TEMP 37.1; O2SAT 99
== END 2025-06-04 19:34 | disposition home or self-care (01) ==
PROVIDERS: Emergency Provider Student in an Organized Health Care Education/Training Program
DX: N93.9 Abnormal uterine and vaginal bleeding, unspecified (principal); N85.00 Endometrial hyperplasia, unspecified; R93.89 Abnormal findings on diagnostic imaging of other specified body structures; R32 Unspecified urinary incontinence; Z79.899 Other long term (current) drug therapy
CPT/HCPCS: 36415; 51701; 76830; 76856; 80048; 81001; 82272; 85025; 86850; 86900; 86901; 99284

== ENCOUNTER → 2025-06-04 13:37 | Outpatient (BNV) | payer MEDICARE, SELFPAY | PROVIDERS: Emergency Provider Student in an Organized Health Care Education/Training Program; Visit Provider Radiology Diagnostic Radiology | DX: N95.0 Postmenopausal bleeding (principal) | CPT/HCPCS: 76830; 76856 ==

== ENCOUNTER 2025-06-19 09:09 | Outpatient (AMB) | payer MEDICARE, MEDICAID, SELFPAY ==
--- NOTE | 2025-06-19 09:14 | AM.OFFVISMDC ---
Intake Vital Signs 06/19/25 09:16 Height 5 ft 5 in BMI Reason not done Patient refused/unable BP 126/68 Blood Pressure Location Lt brachial Position Sitting Pulse 103 H Pulse Source Pulse Oximeter Temp 97.1 F Temp Source Temporal Artery Scan Pulse Oximetry (%) 95 Oxygen Delivery Method Room Air Intake Visit Reasons: AWV Intake Note: Patient is here for an Annual Wellness Visit. Studio Engineer Required: No Demonstrator Knitting: Demonstrator Knitting offered & declined Accompanied by: Self / Same As Patient Allergies Penicillins (PENICILLINS) Allergy (Intermediate, Verified 06/19/25 09:28) SWELLING Medication List - Last Reconciled 06/19/25 by Esther Garcia MD [adult diapers briefs As directed] atorvastatin 80 mg PO DAILY azathioprine 50 mg PO DAILY 90 days [bed mattress As directed] blood sugar diagnostic (FreeStyle Lite Strips) Use 1 test strip once a day blood-glucose meter (FreeStyle Lite Meter kit) As directed cholecalciferol (vitamin D3) 50 mcg PO DAILY cream base no.228 (bulk) (Atrevis Hydrogel cream) 1 appl miscellaneous DAILY PRN 90 days [diabetic shoes As directed] diaper,brief,adult,disposable (Briefs, Adult-Extra Large) As directed, Size 3x [maxim lift As directed] hydrocortisone 1% (Anti-Itch (hydrocortisone)) 1 appl topical BID PRN 2 weeks lancets (FreeStyle Lancets) Use 1 lancet once a day lisinopril 10 mg PO DAILY 90 days metformin 1,000 mg PO BID 90 days miscellaneous medical supply 1 ea miscellaneous Q2H PRN naproxen 250 mg PO DAILY PRN 90 days [off-set hinges As directed] oxybutynin chloride ER 15 mg PO DAILY 90 days [pedestal sink As directed] tranexamic acid 650 mg PO Q8H 7 days [wheelchair As directed] white petrolatum 41% (Aquaphor Healing) 1 appl topical DAILY PRN 30 days HPI HPI Comments History of Present Illness Details The patient is an 80-year-old female presenting with a Medicare annual wellness exam. She has a history of diabetes mellitus, which requires regular blood work for monitoring. Due to mobility issues, she finds it challenging to visit the lab and requests home blood draws. The patient also has hypertension managed with lisinopril 10 mg daily. She is adherent to her medication regimen. She is diagnosed with bullous pemphigoid, for which she takes azathioprine. Her medication list also includes atorvastatin for hyperlipidemia, vitamin D, metformin for diabetes, and naproxen as needed. 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 She requires a new hearing aid. She experiences mobility impairment, currently using a wheelchair but is undergoing physical therapy to improve her ability to stand and walk. Her preventative care includes vaccinations, with her tetanus vaccine updated in 2019 and a new pneumonia vaccine recommended today. [facility] Medical History (Updated 06/19/25 @ 09:52 by Esther Garcia MD) Stage 1 skin ulcer of sacral region Abnormal x-ray Osteoporosis Urge urinary incontinence Hypovitaminosis D Bullous pemphigoid Pure hypercholesterolemia Knee osteoarthritis Lumbar degenerative disc disease Diabetes mellitus Surgical History S/P ORIF (open reduction internal fixation) fracture Status post trigger finger release History of removal of cyst History of bunionectomy Family History Father Diabetes Mother Diabetes Dementia Sister No problems noted. Maternal Grandmother Diabetes Maternal Grandfather Diabetes Paternal Grandmother Stroke Maternal Uncle Stroke CVD (cardiovascular disease) Cancer Social History Housing: House Alcohol intake: never Patient Tobacco Use Status: Never used Tobacco e-Cigarette/Vaping Use: Never Used Second Hand Smoke Exposure: No service: No Current occupational status: retired and disabled Cognitive needs: Yes Hearing needs: No Vision needs: No Questionnaire Medicare Wellness Checkup What is your age?: 80 or older What gender do you identify with?: female During the past 4 weeks, how much have you been bothered by emotional problems such as feeling anxious, depressed, irritable, sad or downhearted, and blue?: not at all During the past 4 weeks, has your physical & emotional health limited your social activities with family, friends, neighbors, or groups?: not at all During the past 4 weeks, how much bodily pain have you generally had?: no pain During the past 4 weeks, was someone available to help you if you needed & wanted help?: yes, as much as I wanted During the past 4 weeks, what was the hardest physical activity you could do for at least 2 minutes?: moderate Can you get to places out of walking distance without help? (For eg., can you travel alone on buses, taxis or drive your car?): No Can you go shopping for groceries or clothes without someone's help?: No Can you prepare your own meals?: No Can you do your housework without help?: No Because of any health problems, do you need the help of another person with your personal care needs such as eating, bathing, dressing or getting around the house?: Yes Can you handle your own money without help?: No During the past 4 weeks, how would you rate your health in general?: very good During the past 4 weeks how have things been going for you?: pretty well Are you having difficulties driving your car?: not applicable, I don't use a car Do you always fasten your seat belt when you are in a car?: yes, usually During past 4 weeks, have you been bothered by the following: never: Falling or dizzy when standing up, Sexual problems?, Trouble eating well?, Teeth or denture problems?, Problems using the telephone? and Tiredness or fatigue? Have you fallen 2 or more times in the past year?: No Are you afraid of falling?: Yes Are you a smoker?: no During the past 4 weeks, how many drinks of wine, beer, or other alcoholic beverages did you have?: no alcohol at all Do you exercise for about 20 minutes 3 or more times a week?: yes, all the time Have you been given information to help with the following?: no: Hazards in your house that might hurt you? and no: Keeping track of your medications? How often do you have trouble taking medicines the way you have been told to take them?: I always take medicine as prescribed How confident are you that you can control & manage most of your health problems?: very confident What is your race?: Black or Mini Mental State Exam (MMSE) Orientation What is the (year) (season) (date) (day) (month)?: year, season, date, day and month Where are we (state) (county) (town or city) (hospital) (floor)?: state, county, town or city, hospital/clinic and floor Registration Name of 3 unrelated objects clearly and slowly, then ask patient to repeat all 3 of them. (1st repeat determines score. Make sure they can repeat all three): object 1, object 2 and object 3 Attention & Calculation (CHOOSE ONE) Spell WORLD backwards (DLROW): 4 letters Recall Ask patient to repeat the 3 items from question #3.: object 1, object 2 and object 3 Language Show patient a wristwatch & ask what it is. Repeat for pencil.: watch and pencil Ask the patient to repeat the phrase 'No ifs, ands, or buts' after you.: correct Ask the patient to 'take a piece of paper with their right hand' 'fold paper in half' 'place paper on floor': take paper in right hand, fold paper in half and place paper on floor Print the sentence 'CLOSE YOUR EYES' on a piece. If patient actually closes eyes then score.: followed written direction Give patient a blank piece of paper & ask to write a sentence. Score if it contains a noun & verb.: sentence contains subject and verb Ask patient to copy figure of intersecting pentagons exactly. Score if all 10 angles & 2 intersects are included.: all 10 angles present & 2 are intersected Score Score: 29 Activity of Daily Living Bathing - sponge bath, tub bath or shower: receives help in bathing more than one body part (or not bathed) Dressing - getting clothes from closets & drawers, including inner/outer garments & fasteners.: receives help getting clothes or getting dressed, or stays undressed Toileting - going to the 'toilet room' for urine/bowel elimination & cleaning self/arranging clothes: does not go to room termed toilet for elimination process Transfer: does not get out of bed Continence: supervision helps urination/bowel control; catheter use; incontinent Feeding: feeds self without help Total Score: 5 Information obtained from: patient Using telephone: independent Traveling: dependent Shopping: dependent Preparing meals: dependent Housework: dependent Taking medicine: needs assistance Managing money: dependent PHQ-9 Over the last 2 weeks, how often have you been bothered by any of the following problems? 1. Little interest or pleasure in doing things: not at all 2. Feeling down, depressed, or hopeless: not at all 3. Trouble falling or staying asleep, or sleeping too much: not at all 4. Feeling tired or having little energy: not at all 5. Poor appetite or overeating: not at all 6. Feeling bad about yourself - or that you are a failure or have let yourself or your family down: not at all 7. Trouble concentrating on things, such as reading the newspaper or watching television: not at all 8. Moving or speaking so slowly that other people could have noticed. Or the opposite - being so fidgety or restless that you have been moving around a lot more than usual: not at all 9. Thoughts that you would be better off or of hurting yourself in some way: not at all Total score: 0 Depression Screening Interpretation: Negative Depression Screening Done: Yes 94675 - PHQ-9 Billing: Yes Source: Developed by Drs. Bryon Partida, Puja Hickey, Nikolay Gunn and colleagues, with an educational bucky from [employer]. Thrive Questionnaire Date Thrive assessed: 10/12/24 NASIR-7 AMB Questionnaire NASIR-7 Date NASIR - 7 assessed: 10/12/24 Source: Developed by Drs. Bryon Partida, Nikolay Bhatia and colleagues, with an educational bucky from [employer]. Review of Systems Const All systems reviewed & are unremarkable except as noted in HPI and below Card Denies chest pain at rest, Denies chest pain with activity, Denies edema, Denies irregular heart rhythm, Denies claudication, Denies dyspnea, Denies dyspnea on exertion, Denies orthopnea, Denies paroxysmal nocturnal dyspnea and Denies slow heart rate Resp Denies cough, Denies dyspnea and Denies dyspnea on exertion GI Denies abdominal pain, Denies change in bowel habits, Denies excessive flatus, Denies nausea and Denies vomiting Denies urinary incontinence, Denies urinary hesitancy and Denies urinary urgency Physical Exam Vital Signs: Last Vital Signs Temp 97.1 F 06/19/25 09:16 Pulse 103 H 06/19/25 09:16 BP 126/68 06/19/25 09:16 Pulse Ox 95 06/19/25 09:16 Oxygen Delivery Method Room Air 06/19/25 09:16 Resp Effort & Inspection: normal respiratory effort Auscultation: clear to auscultation bilaterally Cardio Jugular venous distension: no JVD Rate: regular rate Rhythm: regular rhythm Heart sounds: S1 normal heart sound present and S2 normal heart sound present Results AMB Hemoglobin A1c AMB Hemoglobin A1c 6.7 % Last Edit by NIKKI Leyva on 06/19/25 09:28 Immunizations pneumoc 20-shaun conj-dip cr(PF) 0.5 mL IM syringe Performing Provider: Esther Garcia MD Performing Location: [facility] Administered by: Cristina Hill CMA on 06/19/25 09:50 Dose Route Admin Location Dispensed Lot Number Expiration Date [facility] Manufacturing Quality Inspector 0.5 mL IM Left Deltoid 0.5 mL [id number] 05/15/26 [employer] Total Dispensed Waste 0.5 mL 0 % VIS Given Date VIS Provided VIS Publication Date 06/19/25 Single Vaccine 25 Eligibility Eligibility Date Funding Source Not [facility] Eligible 06/19/25 Private Results Reviewed Results Reviewed: Laboratory Last Values Hgb A1c (Clinic) 6.7 % (4.0-6.0) H 06/19/25 09:13 Assessment & Plan Assessment & Plan (1) Encounter for Medicare annual wellness exam: Code(s): Z00.00 - Encounter for general adult medical examination without abnormal findings (2) Diabetes mellitus: Code(s): E11.9 - Type 2 diabetes mellitus without complications Qualifiers: Diabetes mellitus type: type 2 Diabetes mellitus long term acute care registered nurse insulin use: unspecified long term acute care registered nurse insulin use status Diabetes mellitus complication status: without complication Qualified Code(s): E11.9 - Type 2 diabetes mellitus without complications (3) Hearing loss: Code(s): H91.90 - Unspecified hearing loss, unspecified ear (4) DUB (dysfunctional uterine bleeding): Code(s): N93.8 - Other specified abnormal uterine and vaginal bleeding Plan Plan Patient was informed and verbally consented to the use of an ambient scribe for clinic note documentation during this visit. 1. Encounter for general adult medical examination without abnormal findings Z00.00 The patient is advised to receive the PCV20 pneumonia vaccine today as part of her preventative care. 2. Type 2 diabetes mellitus without complications E11.9 HCC 19 The patient requires regular blood glucose monitoring and a glucometer will be provided for home use. Blood work will be conducted to monitor diabetes management. 3. Unspecified hearing loss, unspecified ear H91.90 The patient requires a new hearing aid due to loss of the previous one during an accident. Referral for a hearing test is planned. Orders: Orders AMB Hemoglobin A1c Today E11.9 - Type 2 diabetes mellitus without complications Pneumococcal 20 Immunization Today Z23 - Encounter for immunization Lipid Panel Today E78.5 - Hyperlipidemia, unspecified Microalbumin, Random (w Creat) Today R80.9 - Proteinuria, unspecified Vitamin B12 and Folate Today E53.8 - Deficiency of other specified B group vitamins Comprehensive [place]. Panel Fast Today E11.9 - Type 2 diabetes mellitus without complications Complete Blood Count Auto Diff Today D64.9 - Anemia, unspecified Vitamin D 25-OH Total Today E55.9 - Vitamin D deficiency, unspecified Referrals GARBAGE COLLECTOR SUPERVISOR Referral N93.8 - Other specified abnormal uterine and vaginal bleeding Speech and Hearing Referral H91.90 - Unspecified hearing loss, unspecified ear Medications: New blood sugar diagnostic (FreeStyle Lite Strips) Use 1 lancet once a day 100 ea 3RF E11.9 - Type 2 diabetes mellitus without complications blood-glucose meter (FreeStyle Lite Meter kit) As directed 1 ea 0RF E11.9 - Type 2 diabetes mellitus without complications lancets (FreeStyle Lancets) Use 1 lancet once a day 100 ea 3RF E11.9 - Type 2 diabetes mellitus without complications Refilled cream base no.228 (bulk) (Atrevis Hydrogel cream) 1 appl miscellaneous DAILY PRN 1 g 1RF wound care 90 days 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 hydrocortisone 1% (Anti-Itch (hydrocortisone)) 1 appl topical BID PRN 28.4 grams 1RF skin irritation 2 weeks metformin 1,000 mg PO BID 180 tabs 1RF 90 days E11.9 - Type 2 diabetes mellitus without complications oxybutynin chloride ER 15 mg PO DAILY 90 tabs 1RF 90 days cholecalciferol (vitamin D3) 50 mcg PO DAILY 90 caps 0RF azathioprine 50 mg PO DAILY 90 tabs 1RF 90 days Quality Reporting (2019) Depression/Bipolar (159/160/161/177) PHQ-9: Total score: 0 Coding Level of Care Code Medicare First (G0438) Est Pt Level 3 (14588) Diagnoses Encounter for Medicare annual wellness exam Z00.00 Type 2 diabetes mellitus without complication, unspecified whether fpc insulin use E11.9 Diabetes mellitus type: type 2 Diabetes mellitus fpc insulin use: unspecified long term acute care registered nurse insulin use status Diabetes mellitus complication status: without complication Hearing loss H91.90 DUB (dysfunctional uterine bleeding) N93.8 CPT Codes Advance Care Planning - Advance Care Planning discussion: On file, no changes ([id number]) Additional Codes PHQ-9 - 21909 - PHQ-9 Billing: Yes ([id number]) Time Spent (min) 35 Advance Care Planning Advance Care Planning discussion: On file, no changes Date of discussion: 06/19/25 Who was present: patient and me Forms completed: Health Care Proxy Actual minutes spent: 1 Did not discuss due to Cultural/Spiritual beliefs: Yes
[2025-06-19 09:16] VITALS: BP 126/68; PULSE 103; TEMP 36.2; O2SAT 95
--- OUTSIDE RECORDS SUMMARY | 2025-06-19 10:17 | XMS_ITS | Clinical Summary ---
Author Organization [facility] Facility Address [address] [place] [address] Care Team Providers Care Referral Manager Name Role Phone Esther De Los Santos MD Primary Care Provider [phone] Allergies Active Allergy Reactions Criticality Noted Date [...] week and will obtain input from outpatient nursing aide regarding holding of Imuran --She needs to be nonweightbearing of both lower extremity Closed comminuted fracture of patella 12/24/2020 Overview (06/14/2024): Last Assessment & Plan: Right knee x-ray: 1mm depressed lateral tibial plateau fracture. Comminuted inferior patella fracture with moderate displacement Possible cortical irregularly to the distal femur at the lateral epicondyle. --Orthopedics planning surgery next week --I try to locate her nursing aide, was not able to find Dr. Osmin [...] Due Date Last Done Comments Pneumococcal Vaccine: 50+ Ye ars (2 of 2 - PPSV23, PCV20, or PCV21) 08/24/2018 06/29/2018 Diabetes: Hemoglobin A1C 01/31/2021 07/09/2020 Diabetes: Ophthalmology Exam 01/31/2021 Diabetes: Pedal Pulse Checked 01/31/2021 Diabetes: Sensory Foot Exam 01/31/2021 Diabetes: Visual Foot Exam 01/31/2021 Influenza Vaccine (#1) 2025 Pneumococcal Vaccine: Peds ( 0 to 5 Years) and At-Risk Patients (6 to 49 Years) Discontinued 06/29/2018 Hepatitis B Vaccine Aged Out No longe [...] % PVNMA 07/09/2020 us Rtama Conversion LAB [id number] LICITED RESULTS Final Result PVNMA from Last 3 Months or Most Recently Relevant to Health Maintenance Insurance [facility] [place] [address] [address] Medicare Care Teams Referral Manager Relationship Specialty Start Date End Date Esther De Los Santos MD [address] [place] [address] PCP - General 09/24/20
--- OUTSIDE RECORDS SUMMARY | 2025-06-19 10:17 | XMS_ITS | Encounter Summary ---
Author Organization [facility] Address [address] [address] Phone Care Team Providers Care Internet Marketing Intern Name Role Phone Esther De Los Santos MD Primary Care Provid er Encounter Details Date Type Department Care Team (Late st Contact Info) Description 01/02/2021 Procedure Pass [place] Admitting Dept - Virtual Department [address] [place] [id number] Social History Tobacco Use Types Packs/Day Years [...] on filedocumented in this encounter Care Teams Internet Marketing Intern Relationship Specialty Start Date End Date Esther De Los Santos MD [address] [place] [address] PCP - General Internal Medicine 12/24/20 documented as of this encounter Additional Source Comments The information contained in this document represents components of the legal health record. It is not the complete legal health record.[facility]
--- OUTSIDE RECORDS SUMMARY | 2025-06-19 10:17 | XMS_ITS | Encounter Summary ---
Author Organization [facility] Address [address] [place] [phone] Phone Care Team Providers Care Automotive Service Porter Name Role Phone Esther De Los Santos MD Primary Care Provid er Encounter Details Date Type Department Care Team (Late st Contact Info) Description 01/14/2021 Procedure Pass [place] Admitting Dept - Virtual Department [address] [place] [address] Social History Tobacco Use Types Packs/Day Years [...] 5:41 PM EDT Astrid Solomon RN * Williams Suicide Severity Rating Scale (Screener/Recent Self-Report) Question Answer Date of Assessment Author 1. Wish to be (Past 1 Month) No 021 5:41 PM EDT Astrid Solomon RN 2. Non-Specific Active Suici maite Thoughts (Past 1 Month) No 01/14/2021 5:41 PM EDT Melville, Astrid A, RN 6. Suicidal Behavior (Lifetime) No 1 5:41 PM EDT Astrid Solomon RN documented as of this encounter Plan of Treatment Not on file documented as of this encounter Visit Diagnoses Not on filedocumented in this encounter Care Teams Automotive Service Porter Relationship Specialty Start Date End Date Esther De Los Santos MD [address] [place] [address] PCP - General Internal Medicine 12/24/20 documented as of this encounter Additional Source Comments The information contained in this document represents components of the legal health record. It is not the complete legal health record.[facility]
--- OUTSIDE RECORDS SUMMARY | 2025-06-19 10:17 | XMS_ITS | Clinical Summary ---
Author Organization [facility] Address [address] [place] [id number] Phone Care Team Providers Care Surgical Services Tech Name Role Phone Esther De Los Santos [...] week and will obtain input from outpatient paper rewinder regarding holding of Imuran --She needs to [...] next week --I try to locate her paper rewinder, was not able to find Dr. Osmin [...] this topic Medical Devices Implanted Type Area Visual Display Associate Device Identifier Shelf Expiration Date Model / Serial / Lot Graft Bone 1 To 8mm 30 Readi Allo Chip Cancellous Crushed Void Filler Preservon - [id number] Implanted:Qty: 1 on 01/02/2021 by Ru George MD at [facility] BON[employer]UE Left: Ankle [employer] [facility] / [id number] [employer] Blue 2.8mm Trilock Screw 14mm Hd7 A-5850.14 Implanted:Qty: 1 on 01/02/2021 by Ru George MD at [facility] Left: Ankle A-5850.14 / / [employer] Blue 2.8mm Trilock Screw 16mm Hd7 A-5850.16 Implanted:Qty: 4 on 01/02/2021 by Ru George MD at [facility] Left: Ankle A-5850.16 / / [employer] Blue 2.8mm Trilock Screw 18mm Hd7 A-5850.18 Implanted:Qty: 2 on 01/02/2021 by Ru George MD at [facility] Left: Ankle A-5850.18 / / Edatris Blue 2.8mm Trilocking Screw 20mm Hd7 A-5850.20 Implanted:Qty: 3 on 01/02/2021 by Ru George MD at [facility] Left: Ankle A-5850.20 / / Medatris Blue 2.8mm Trilocking Screw 50mm Hd7 A-5850.50 Implanted:Qty: 1 on 01/02/2021 by Ru George MD at [facility] Left: Ankle A-5850.50 / / [employer] 2.8 Trilock Fibula Plates A-4854.00 2.8 Trilock Dist. Fibula Plate, 3/6 Hole Implanted:Qty: 1 on 01/02/2021 by Ru George MD at [facility] Left: Ankle A-4854.00 / / [employer] 2.8/3.5 Trilock Fibla Plates A-4954.03 2.8/3.[address] Trilock [address] Fib. Pl. Lat. 15h,L Implanted:Qty: 1 on 01/02/2021 by Ru George MD at [facility] Left: Ankle A-4954.03 / / [employer]is Gold 3.5mm Cortical Screw 12mm Hd15 1/Pkg A-5901.12/1 Implanted:Qty: 1 on 01/02/2021 by Ru George MD at [facility] Left: Ankle A-5901.12 /1 / / [employer] 3.5 Cortical Screw 55mm Hd15 1/Pkg A-5901.55/1 Implanted:Qty: 1 on 01/02/2021 by Ru George MD at [facility] Left: Ankle A-5901.55 / / [employer] Blue 3.5mm Trilock Screw A-5950.12 3.5mm Triclock Screw 12mm Hd15 Implanted:Qty: 3 on 01/02/2021 by Ru George MD at [facility] Left: Ankle A-5950.12 / / [employer] Blue 3.5mm Trilock Screw 28mm Hd15 A-5950.28 Implanted:Qty: 1 on 01/02/2021 by Ru George MD at [facility] Left: Ankle A-5950.28 / / [employer] Blue 2.8mm Trilock Screw 10mm Hd7 A-5850.10 Implanted:Qty: 2 on 01/02/2021 by Ru George MD at [facility] Left: Ankle A-5850.10 / / [employer] Blue 2.8mm Trilock Screw 12mm Hd7 A-5850.12 Implanted:Qty: 1 on 01/02/2021 by Ru George MD at [facility] Left: Ankle A-5850.12 / / Procedures Procedure Name Priority Date/Time Associated Diagnosis Comments BASIC METABOLIC PANEL STAT 01/28/2021 12:46 PM EDT COMPREHENSIVE METABOLIC PANEL Routine 12/25/2020 7:07 AM EDT HEMOGLOBIN A1C STAT 12/24/2020 5:33 PM EDT from Last 3 Months or Most Recently Relevant to Health Maintenance Results * (ABNORMAL) Basic metabolic panel (01/28/2021 12:46 PM EDT) SODIUM 129(L) 133 - 146 mmol/L [facility] CHLORIDE 98 96 - 108 mmol/L [facility] POTASSIUM 5.2(H) 3.3 - 5.1 mmol/L [facility] CO2 22 21 - 35 mmol/L [facility] BUN 30(H) 6 - 19 mg/dL [facility] CREATININE 1.60(H) 0.5 - 1.5 mg/dL [facility] GLUCOSE 104(H) 70 - 99 mg/dL [facility] CALCIUM 9.6 8.4 - 10.3 mg/dL [facility] EGFR 31(L) >59 mL/min/1.7 3m2 [facility] Comment:Estimated glomerular filtration rate calculated using the CKD-EPI equation. ANION GAP 14 10 - 20 mmol/L [facility] Blood 01/28/2021 12:4 6 PM EDT 01/28/2021 12:56 PM EDT us Paige Gross PA-C LAB BLOOD ORDERABLES Fi nal Result [facility] [address] [place] [address] * (ABNORMAL) Comprehensive metabolic panel (12/25/2020 7:07 AM EDT) SODIUM 140 133 - 146 mmol/L [facility] POTASSIUM 4.2 3.3 - 5.1 mmol/L [facility] CHLORIDE 103 96 - 108 mmol/L [facility] CO2 29 21 - 35 mmol/L [facility] BUN 10 6 - 19 mg/dL [facility] CREATININE 1.10 0.5 - 1.5 mg/dL [facility] GLUCOSE 127(H) 70 - 99 mg/dL [facility] ALBUMIN 3.5(L) 3.9 - 4.8 g/dL [facility] TOTAL PROTEIN 6.5 6.5 - 8.0 g/dL [facility] CALCIUM 8.8 8.4 - 10.3 mg/dL [facility] ALKALINE PHOSPHATASE 64 39 - 117 U/L [facility] TOTAL BILIRUBIN 1.2 0.0 - 1.2 mg/dL [facility] AST 24 0 - 37 U/L [facility] ALT 9 0 - 40 U/L [facility] GLOBULIN 3.0 1 - 4.8 g/dL [facility] EGFR 48(L) >59 mL/min/1.7 3m2 [facility] Comment:Estimated glomerular filtration rate calculated using the CKD-EPI equation. ANION GAP 12 10 - 20 mmol/L [facility] Blood 12/25/2020 7:07 AM EDT 12/25/2020 8:02 AM EDT us Ravi Welch PA-C LAB BLOOD ORDERABLES Final Re sult [address] [address] * Hemoglobin A1c (12/24/2020 5:33 PM EDT) HEMOGLOBIN A1C 5.8 4.3 - 5.8 % [facility] Blood 12/24/2020 5:33 PM EDT 12/24/2020 5:37 PM EDT us Bill Denson MD LAB BLOOD ORDERABLES Final Resul t [address] [address] from Last 3 Months or Most Recently Relevant to Health Maintenance Insurance MEDICARE PART A & B [employer] [facility] PARTIAL MEDICARE PART A & B [employer] [facility] PARTIAL MEDICARE PART A & B [employer] PARTIAL MEDICARE PART A & B [employer] NET PARTIAL MEDICARE PART A & B [id number] [place] [address] PARTIAL MEDICARE PART A & B [employer] NET PARTIAL MEDICARE PART A & B [employer] NET PARTIAL MEDICARE PART A & B [employer] NET PARTIAL MEDICARE PART A & B [employer] S[employer] NET PARTIAL MEDICARE PART A & B Member Subscriber Plan / Payer (Ef fective 2001-Present) Name:Estefani Stewart Member ID:[id number] Relation to Subscriber:Self Name:Estefani Stewart Subscriber ID:[id number] Payer ID:[id number] Group ID:Not on file Type:Medicare Address: [facility] [employer] [facility] [address] [facility] [place] [address] [employer] [address]PP[address] NET PARTIAL GENERIC COMMERCIAL [employer] INSURANCE MEDICARE PART A & B [employer] MEDEX SUPPLEMENT Advance Directives For more information, please contact: [phone] (9AM - 5PM [facility], Thursday-Thursday) Documents on File Type Date Recorded Patient Industrial Safety And Health Specialist Expl anation MOLST 01/29/2021 4:54 PM * Full Code (Latest Code Status on File) Date Activated Date Inactivated Comments 01/14/2021 12:39 PM Question Answer Comments Code Status Confirmed With: Patient * Full Code Date Activated Date Inactivated Comments 12/24/2020 8:06 PM 01/14/2021 12:39 PM Question Answer Comments Code Status Confirmed With: Patient Care Teams Surgical Services Tech Relationship Specialty Start Date End Date Esther De Los Santos MD [address] [place] [address] PCP - General Internal Medicine 12/24/20 Additional Source Comments The information contained in this document represents components of the legal health record. It is not the complete legal health record.[facility]
== END 2025-06-19 09:50 | disposition home or self-care (01) ==
LOC: HO.HMCH 09:10
PROVIDERS: PCP Internal Medicine; Visit Provider Internal Medicine
DX: Z00.00 Encounter for general adult medical examination without abnormal findings (principal); E11.9 Type 2 diabetes mellitus without complications; H91.90 Unspecified hearing loss, unspecified ear; N93.8 Other specified abnormal uterine and vaginal bleeding; Z23 Encounter for immunization

== ENCOUNTER → 2025-06-19 09:09 | Outpatient (BNVA) | payer MEDICARE, MEDICAID, SELFPAY | PROVIDERS: PCP Internal Medicine; Visit Provider Internal Medicine | DX: Z00.00 Encounter for general adult medical examination without abnormal findings (principal); E11.9 Type 2 diabetes mellitus without complications; I10 Essential (primary) hypertension; L12.0 Bullous pemphigoid; H91.90 Unspecified hearing loss, unspecified ear; N93.8 Other specified abnormal uterine and vaginal bleeding; E78.5 Hyperlipidemia, unspecified; R80.9 Proteinuria, unspecified; L98.429 Non-pressure chronic ulcer of back with unspecified severity; Z23 Encounter for immunization | CPT/HCPCS: 83036; 90471; 90677; 96127; 99212 ==

== ENCOUNTER 2025-08-01 09:09 | Outpatient (REF) | payer MEDICARE, MEDICAID, SELFPAY | END 2025-08-01 09:10 | disposition home or self-care (01) | LOC: HO.LNP 09:09 | PROVIDERS: PCP Internal Medicine; Visit Provider Obstetrics & Gynecology | DX: N95.0 Postmenopausal bleeding (principal); Z11.51 Encounter for screening for human papillomavirus (HPV) | CPT/HCPCS: 58100; 87626; 88175; 88305; 99202 ==

== ENCOUNTER 2025-08-01 09:09 | Outpatient (AMB) | payer MEDICARE, MEDICAID, SELFPAY ==
--- NOTE | 2025-08-01 09:20 | A.OFFVIS_ITS ---
Vital Signs 08/01/25 09:23 Height 5 ft 5 in BMI Reason not done Patient refused/unable BP 142/88 H Intake Visit Reasons: New patient/ PMB Director Of Rehabilitative Services Required: No Information Interpreted: non-clinical & clinical Lime Hide Inspector: Lime Hide Inspector Present (Shanthi JORDAN) Accompanied by: Employee Allergies Penicillins (PENICILLINS) Allergy (Intermediate, Verified 08/01/25 09:39) SWELLING Post menopausal: Yes HPI Comments Details: Presenting referred from PCP regarding postmenopausal bleeding. 06/04/2025 pelvic ultrasound done showed the following: Anteverted uterus measuring 7.0 x 2.5 x 4.1cm with a fibroid of the lower uterine segment posteriorly measuring 5.9 x 6.6 x 5.0 cm. Thickened endometrium, measuring0.6cm. The ovaries were not visualized. No lesions in the adnexa. No free fluid. Impression: Mildly thickened endometrium for postmenopausal patient presenting with bleeding. Follow up with gynecology. Fibroid uterus. [facility] Medical History Stage 1 skin ulcer of sacral region Abnormal x-ray Osteoporosis Urge urinary incontinence Hypovitaminosis D Bullous pemphigoid Pure hypercholesterolemia Knee osteoarthritis Lumbar degenerative disc disease Diabetes mellitus Surgical History S/P ORIF (open reduction internal fixation) fracture Status post trigger finger release History of removal of cyst History of bunionectomy Family History Father Diabetes Mother Diabetes Dementia Sister No problems noted. Maternal Grandmother Diabetes Maternal Grandfather Diabetes Paternal Grandmother Stroke Maternal Uncle Stroke CVD (cardiovascular disease) Cancer Social History Housing: House Alcohol intake: never Patient Tobacco Use Status: Never used Tobacco e-Cigarette/Vaping Use: Never Used Second Hand Smoke Exposure: No service: No Current occupational status: retired and disabled Cognitive needs: Yes Hearing needs: No Vision needs: No Review of Systems Const All systems reviewed & are unremarkable except as noted in HPI and below Physical Exam Vital Signs: Last Vital Signs BP 142/88 H 08/01/25 09:23 General: Yes no CVA tenderness External Female Exam: normal external appearance and normal appearance of the urethra Speculum Exam - Vagina: normal appearance of the vagina, normal palpation, no lesions and no masses Speculum Exam - Cervix: normal appearance of the cervix, normal palpation, no lesions, no masses and nontender Bimanual exam- vagina & uterus: normal bimanual exam, normal palpation, uterine size normal, normal palpation, uterine shape normal, No Cervical tenderness present and non-tender Bimanual Exam- Adnexa, other: normal adnexae Back/Spine/Pelvis Back: no CVA tenderness Office Procedures Endometrial Biopsy Details: The patient was counseled regarding the indication and benefits of endometrial sampling to rule out endometrial pathology including not limited to endometrial hyperplasia or endometrial cancer and others; The alternatives (Either do nothing vs. hysteroscopy D&C) & the risks were discussed with the patient including but not limited: pain, uterine perforation, bleeding, infection, possible injury to bladder, bowel, ureter, possible need for blood transfusion with all its possible risks. The patient verbalized understanding all questions answered and signed consent. The patient was placed into the dorsal lithotomy position; a speculum was inserted in the vagina. Using aseptic technique for the procedure, the cervix was cleansed with Betadine. The anterior lip of the cervix was grasped with a single tooth tenaculum. The uterus was sounded to 7 cm with a 4 mm Pipelle was used. Tissues samples were obtained and placed in formalin, in a patient labeled container and sent to the pathology department. At the end of the procedure, there was minimal bleeding noted The patient tolerated the procedure well and was discharged in good condition with the following instructions: Nothing in the vagina until the bleeding stops. No sex until the bleeding stops, to call if any of the following occurs: fever (>100.4), flu-like symptoms, abdominal pain, heavy bleeding, four smelling vaginal discharge. The patient was instructed to schedule a Follow up appointment in 2 weeks to discuss pathology results of the biopsy and treatment options. This note was generated with a voice recognition program. Some errors may have been overlooked during the review of this note. Sometimes these errors may affect the content or meaning of a given sentence. 21239-Wpfeseegnax Biopsy Assessment & Plan Assessment & Plan (1) Postmenopausal bleeding: Code(s): N95.0 - Postmenopausal bleeding Category: Medical Plan: Co testing done. Discussed with the patient the pelvic ultrasound findings, the endometrial stripe thickenss measured by ultrasound was more than 4mm. The negative predictive value, positive predictive value, Sensitivity, specificity of using ultrasound measurement of endometrial stripe to detecting endometrial pathology including hyperplasia , polyp or cancer were discussed with the patient. Recommended to the patient that the next step is an endometrial sampling via hysteroscopy D&C possible polypectomy versus endometrial biopsy to r/o endometrial pathology including hyperplasia or cancer. All the pros and cons risks and benefits of each approach were discussed with the patient, endometrial biopsy being less invasive, office procedure with less sensitivity and inability diagnose a polyp and removal versus hysteroscopy done under anesthesia more invasive more sensitive to endometrial cancer and possibility of diagnosing and endometrial polyp with the possibility of polypectomy. All questions were answered pt verbalized understanding and decided to proceed with endometrial biopsy, EMB done see procedure note Orders: Orders AMB Endometrial Biopsy Today N95.0 - Postmenopausal bleeding Coding Level of Care Code New Pt Level 3 (99116) Procedure Only Diagnoses Postmenopausal bleeding N95.0 CPT Codes Endometrial Biopsy - CPT: 43501-Emutudoaecf Biopsy ([id number])
[2025-08-01 09:23] VITALS: BP 142/88
== END 2025-08-01 10:52 | disposition home or self-care (01) ==
PROVIDERS: PCP Internal Medicine; Visit Provider Obstetrics & Gynecology
DX: N95.0 Postmenopausal bleeding (principal)
CPT/HCPCS: 58100; 99203

== ENCOUNTER 2025-08-22 11:30 | Outpatient (AMB) | payer MEDICARE, MEDICAID, SELFPAY ==
--- NOTE | 2025-08-22 11:30 | MHC.OFFVIS ---
Intake Visit Reasons: EMB results Allergies Penicillins (PENICILLINS) Allergy (Intermediate, Verified 08/01/25 09:39) SWELLING HPI Comments Details: The patient is scheduled a telehealth visit post endometrial biopsy. Doing well with no complaints EMB pathology showed the following: Endometrium, biopsy: - Fragments of inactive endometrium; no atypia or hyperplasia identified. - Rare fragment of squamous epithelium within normal limits Co testing was negative [facility] Medical History Stage 1 skin ulcer of sacral region Abnormal x-ray Osteoporosis Urge urinary incontinence Hypovitaminosis D Bullous pemphigoid Pure hypercholesterolemia Knee osteoarthritis Lumbar degenerative disc disease Diabetes mellitus Surgical History S/P ORIF (open reduction internal fixation) fracture Status post trigger finger release History of removal of cyst History of bunionectomy Family History Father Diabetes Mother Diabetes Dementia Sister No problems noted. Maternal Grandmother Diabetes Maternal Grandfather Diabetes Paternal Grandmother Stroke Maternal Uncle Stroke CVD (cardiovascular disease) Cancer Social History Housing: House Alcohol intake: never Patient Tobacco Use Status: Never used Tobacco e-Cigarette/Vaping Use: Never Used Second Hand Smoke Exposure: No service: No Current occupational status: retired and disabled Cognitive needs: Yes Hearing needs: No Vision needs: No Review of Systems Const All systems reviewed & are unremarkable except as noted in HPI and below Reports as per HPI and Reports no additional complaints GI Reports no additional complaints Reports no additional complaints Telehealth Telehealth Telehealth Platform: Telephone Location of provider rendering services: practice address Location of patient: address on file Patient Identification confirmed using: Name, : Yes Telehealth method: voice only Patient verbally consented to treatment: Yes Patient verbally consented to billing insurance company: Yes Patient informed of any privacy concerns related to visit: Yes Minutes spent on Phone/Video with Pt.: 1 Assessment & Plan Assessment & Plan (1) Postmenopausal bleeding: Code(s): N95.0 - Postmenopausal bleeding Category: Medical Plan: Discussed with the patient the results of the endometrial biopsy. Discussed with the patient the sensitivity, specificity, positive and negative predictive value, of endometrial biopsy in detecting endometrial pathology including but not limited to endometrial hyperplasia, cancer and other pathology; instructed the patient to call in case vaginal bleeding recurs, the next step will be to proceed with a diagnostic hysteroscopy/D&C for further endometrial sampling evaluation to rule out endometrial pathology. All questions answered and the patient verbalized understanding and agreed with the plan. I spent a total of 20 minutes reviewing the chart, talking to the patient via video and documenting in the medical record. Coding Level of Care Code Tele Est Pt Level 3 (87570) Diagnoses Postmenopausal bleeding N95.0
== END 2025-08-22 11:42 | disposition home or self-care (01) ==
LOC: HO.HWS 11:30
PROVIDERS: PCP Internal Medicine; Visit Provider Obstetrics & Gynecology
DX: N95.0 Postmenopausal bleeding (principal)
CPT/HCPCS: 99213